=== PATIENT | female | born 1950 | race Caucasian/White ===

== ENCOUNTER 2020-10-12 09:07 | Emergency (ER) | payer OTHER ==
--- OUTSIDE RECORDS SUMMARY | 2020-10-12 09:10 | XMS REPORT | Continuity of Care Document ---
:1950 Author Organization [facility] t Address [address] [place] [address] Dr. Rodriguez [address] [place] [id number] Care Team Providers Name Role Phone Unavailable Unavailable Unavailable Problems This patient has no known problems. Allergies, Adverse Reactions, Alerts This patient has no known allergies or adverse reactions. Medications This patient has no known medications. Procedures This patient has no known procedures. Results This patient has no known results.
--- NOTE | 2020-10-12 09:53 | EDPHYS ---
Physician Documentation [facility] Name: Valeria Regan Age: 70 yrs Sex: Female : 1950 Arrival Date: 10/12/2020 Time: 09:10 Bed 5 Private MD: ED Physician Mauricio Carrizales HPI: 10/12 11:01 This 70 yrs old Female presents to ER via Ambulatory with complaints of Bee kb Sting, Hand Swelling. 11:01 The patient presents with itching, localized swelling, redness of skin. Onset: The kb symptoms/episode began/occurred yesterday. Associated signs and symptoms: Pertinent positives: swelling, Pertinent negatives: chest pain, nausea, rash, shortness of breath, Syncope vomiting. Possible causes: wasp. At home the patient or guardian has treated the symptoms with nothing. Severity of symptoms: At their worst the symptoms were moderate in the emergency department the symptoms are unchanged. The patient has not experienced similar symptoms in the past. The patient has not recently seen a physician. Pt reports swelling to left hand and forearm that started yesterday after being stung by a wasp.. Historical: - Allergies: 09:17 No Known Allergies; jd3 - PMHx: 09:17 Hypertension; jd3 09:18 tachycardia; jd3 - PSHx: 09:17 Hysterectomy; jd3 - Immunization history:: Adult Immunizations up to date, Client reports receiving the 2nd dose of the Covid vaccine. - Social history:: Smoking status: Patient denies any tobacco usage or history of. ROS: 10:56 Constitutional: Negative for fever, chills, and weight loss. kb 10:57 Skin: Positive for erythema, swelling, of the left hand and left forearm. kb 10:57 All other systems are negative. Exam: 10:59 Constitutional: This is a well developed, well nourished patient who is awake, alert, kb and in no acute distress. Head/Face: Normocephalic, atraumatic. ENT: Moist Mucous membranes Respiratory: Respirations even and unlabored. No increased work of breathing, no retractions or nasal flaring. MS/ Extremity: Pulses equal, no cyanosis. Neurovascular intact. Full, normal range of motion. Neuro: Awake and alert, GCS 15, oriented to person, place, time, and situation. Moves all extremities. Normal gait. Psych: Awake, alert, with orientation to person, place and time. Behavior, mood, and affect are within normal limits. 10:59 Skin: Appearance: normal except for affected area, Color: erythematous, mild erythema to palmar surface of left forearm, Temperature: warm, increased warmth noted to some areas of forearm, swelling, noted on the left forearm and left hand, that are moderate. Vital Signs: 09:18 BP 134 / 71; Pulse 72; Resp 17 S; Temp 97.0(TE); Pulse Ox 99% on R/A; Weight 67.59 kg jd3 (R); Height 5 ft. 4 in. (162.56 cm) (R); Pain 3/10; 09:18 Body Mass Index 25.58 (67.59 kg, 162.56 cm) jd3 MDM: 09:15 Patient medically screened. kb 10:55 Data reviewed: vital signs, nurses notes. Data interpreted: Pulse oximetry: on room air kb is 99 %. Interpretation: normal. Counseling: I had a detailed discussion with the patient and/or guardian regarding: the historical points, exam findings, and any diagnostic results supporting the discharge/admit diagnosis, the need for outpatient follow up, a family practitioner, to return to the emergency department if symptoms worsen or persist or if there are any questions or concerns that arise at home. 10:57 ED course: Full ROM, neurovascularly intact LUE. Pt educated on elevation of extremity kb to decrease swelling and use of medications. Pt educated to return for tingling, numbness, decreased sensation, coolness. Verbal understanding of all instructions received. . Administered Medications: 09:45 Drug: Pepcid (famotidine) 20 mg Route: PO; hb 09:46 Drug: KeFLEX (cephalexin) 500 mg Route: PO; hb 09:46 Drug: predniSONE 40 mg Route: PO; hb Disposition: 15:59 Co-signature as Attending Physician, Mauricio Carrizales MD. rn Disposition: 10/12/20 09:53 Discharged to Home. Impression: Bitten or stung by nonvenomous insect and other nonvenomous arthropods - wasp, Other insect allergy status. - Condition is Stable. - Discharge Instructions: Bee, Wasp, or Hornet Sting, Adult, Allergies, [id number]. - Prescriptions for Pepcid 20 mg Oral Tablet - take 1 tablet by ORAL route every 12 hours for 5 days; 10 tablet. Prednisone 20 mg Oral Tablet - take 1 tablet by ORAL route once daily for 5 days; 5 tablet. Keflex 500 mg Oral Capsule - take 1 capsule by ORAL route every 8 hours for 10 days; 30 capsule. - Medication Reconciliation Form, Thank You Letter, Antibiotic Education, Prescription Opioid Use form. - Follow up: Emergency Department; When: As needed; Reason: Worsening of condition. Follow up: Private Physician; When: 2 - 3 days; Reason: Recheck today's complaints, Continuance of care, Re-evaluation by your physician. Signatures: Chani Mendoza, MOLD YARN SUPERVISOR-C MOLD YARN SUPERVISOR-Ckb Mauricio Carrizales MD MD rn Sylvie Peña RN RN ss Danni Doyle RN RN Robin Schmitt RN RN jd3 Corrections: (The following items were deleted from the chart) 10:13 09:53 10/12/2020 09:53 Discharged to Home. Impression: Bitten or stung by nonvenomous ss insect and other nonvenomous arthropods - wasp; Other insect allergy status. Condition is Stable. Forms are Medication Reconciliation Form, Thank You Letter, Antibiotic Education, Prescription Opioid Use. Follow up: Emergency Department; When: As needed; Reason: Worsening of condition. Follow up: Private Physician; When: 2 - 3 days; Reason: Recheck today's complaints, Continuance of care, Re-evaluation by your physician. kb 10:57 10:56 Constitutional: Negative for fever, chills, and weight loss, kb kb
--- NOTE | 2020-10-12 09:53 | ER ---
Nurse's Notes [facility] Name: Valeria Regan Age: 70 yrs Sex: Female : 1950 Arrival Date: 10/12/2020 Time: 09:10 Bed 5 Private MD: Diagnosis: Bitten or stung by nonvenomous insect and other nonvenomous arthropods-wasp;Other insect allergy status Presentation: 10/12 09:16 Chief complaint: Patient states: "I got stung by a wasp yesterday and my left hand is jd3 swelling and now it is traveling up my arm". Coronavirus screen: At this time, the client does not indicate any symptoms associated with coronavirus-19. Ebola Screen: Patient negative for fever greater than or equal to 101.5 degrees Fahrenheit, and additional compatible Ebola Virus Disease symptoms. Onset: The symptoms/episode began/occurred gradually. Anaphylaxis evaluation, no signs or symptoms of anaphylaxis were noted. Initial Sepsis Screen: Does the patient meet any 2 criteria? No. Patient's initial sepsis screen is negative. Does the patient have a suspected source of infection? No. Patient's initial sepsis screen is negative. Risk Assessment: Do you want to hurt yourself or someone else? Patient reports no desire to harm self or others. Onset of symptoms was October 11, 2020. 09:16 Method Of Arrival: Ambulatory jd3 09:16 Acuity: DEYVI 3 jd3 Historical: - Allergies: 09:17 No Known Allergies; jd3 - PMHx: 09:17 Hypertension; jd3 09:18 tachycardia; jd3 - PSHx: 09:17 Hysterectomy; jd3 - Immunization history:: Adult Immunizations up to date, Client reports receiving the 2nd dose of the Covid vaccine. - Social history:: Smoking status: Patient denies any tobacco usage or history of. Assessment: 10:11 Reassessment: Patient appears in no apparent distress at this time. Patient and/or ss family updated on plan of care and expected duration. Pain level reassessed. Vital Signs: 09:18 BP 134 / 71; Pulse 72; Resp 17 S; Temp 97.0(TE); Pulse Ox 99% on R/A; Weight 67.59 kg jd3 (R); Height 5 ft. 4 in. (162.56 cm) (R); Pain 3/10; 09:18 Body Mass Index 25.58 (67.59 kg, 162.56 cm) jd3 ED Course: 09:10 Patient arrived in ED. mr 09:15 [facility]endo[facility]C [facility]. kb 09:15 Mauricio Carrizales MD is Attending Physician. kb 09:17 Triage completed. jd3 09:18 Arm band placed on. jd3 09:37 Danni Doyle, RN is Primary Nurse. hb 10:11 No provider procedures requiring assistance completed. Patient did not have IV access ss during this emergency room visit. Administered Medications: 09:45 Drug: Pepcid (famotidine) 20 mg Route: PO; hb 09:46 Drug: KeFLEX (cephalexin) 500 mg Route: PO; hb 09:46 Drug: predniSONE 40 mg Route: PO; hb Outcome: 09:53 Discharge ordered by MD. kb 10:11 Discharged to home ambulatory. ss 10:11 Condition: good 10:11 Discharge instructions given to patient, Instructed on discharge instructions, follow up and referral plans. medication usage, Demonstrated understanding of instructions, follow-up care, medications, Prescriptions given X 3. 10:13 Patient left the ED. ss Signatures: Chani Mendoza FNP-C FNP-Randy Geetha GuptaSylvie RN RN Danni Doyle, JUJU RN Robin Mccarty RN RN j
[2020-10-12] MEDS ORDERED: predniSONE 20 MG TAB ONE (10:04)
[2020-10-12] MEDS ORDERED: CEPHALEXIN 250 MG CAP ONE (10:04)
[2020-10-12] MEDS ORDERED: FAMOTIDINE 20 MG TAB ONE (10:04)
[2020-10-12 10:18] VITALS: BP 134/71; TEMP 97; O2SAT 99
== END 2020-10-12 10:13 | disposition home or self-care (01) ==
LOC: ER 09:07
DX: S50.862A Insect bite (nonvenomous) of left forearm, initial encounter (principal); Z91.038 Other insect allergy status; I10 Essential (primary) hypertension
CPT/HCPCS: 99283; J7512

== ENCOUNTER 2020-10-15 12:36 | Emergency (ER) | payer OTHER ==
--- OUTSIDE RECORDS SUMMARY | 2020-10-15 12:42 | XMS REPORT | Continuity of Care Document ---
:1950 Author Organization [facility] t Address [address] [place] [address] Dr. Rodriguez [address] [place] [id number] Care Team Providers Name Role Phone Unavailable Unavailable Unavailable Problems This patient has no known problems. Allergies, Adverse Reactions, Alerts This patient has no known allergies or adverse reactions. Medications This patient has no known medications. Procedures This patient has no known procedures. Results This patient has no known results.
--- NOTE | 2020-10-15 14:29 | EDPHYS ---
Physician Documentation [facility] Name: Valeria Regan Age: 70 yrs Sex: Female : 1950 Arrival Date: 10/15/2020 Time: 12:37 Bed 4 Private MD: ED Physician Michael Qiu HPI: 10/15 14:20 This 70 yrs old Female presents to ER via Ambulatory with complaints of vivian Allergic Reaction. Historical: - Allergies: 13:05 No Known Allergies; ph - PMHx: 13:05 Hypertension; Tachycardia; ph - Immunization history:: Client reports receiving the 2nd dose of the Covid vaccine. - Social history:: Smoking status: Patient denies any tobacco usage or history of. - Family history:: not pertinent. ROS: 14:20 Constitutional: Negative for fever, chills, and weight loss, Eyes: Negative for injury, vivian pain, redness, and discharge, ENT: Negative for injury, pain, and discharge, Neck: Negative for injury, pain, and swelling, Cardiovascular: Negative for chest pain, palpitations, and edema, Respiratory: Negative for shortness of breath, cough, wheezing, and pleuritic chest pain, Abdomen/GI: Negative for abdominal pain, nausea, vomiting, diarrhea, and constipation, Back: Negative for injury and pain, : Negative for injury, bleeding, discharge, and swelling, MS/Extremity: Negative for injury and deformity, Skin: Negative for injury, rash, and discoloration, Neuro: Negative for headache, weakness, numbness, tingling, and seizure, Psych: Negative for depression, anxiety, suicide ideation, homicidal ideation, and hallucinations, Endocrine: Negative for neck swelling, polydipsia, polyuria, polyphagia, and marked weight changes, Hematologic/Lymphatic: Negative for swollen nodes, abnormal bleeding, and unusual bruising. 14:20 Allergy/Immunology: Positive for rash to left arm, resolved now, from Keflex. Exam: 14:20 Constitutional: This is a well developed, well nourished patient who is awake, alert, vivian and in no acute distress. Head/Face: Normocephalic, atraumatic. Eyes: Pupils equal round and reactive to light, extra-ocular motions intact. Lids and lashes normal. Conjunctiva and sclera are non-icteric and not injected. Cornea within normal limits. Periorbital areas with no swelling, redness, or edema. ENT: Nares patent. No nasal discharge, no septal abnormalities noted. Tympanic membranes are normal and external auditory canals are clear. Oropharynx with no redness, swelling, or masses, exudates, or evidence of obstruction, uvula midline. Mucous membranes moist. Neck: Trachea midline, no thyromegaly or masses palpated, and no cervical lymphadenopathy. Supple, full range of motion without nuchal rigidity, or vertebral point tenderness. No Meningismus. Chest/axilla: Normal chest wall appearance and motion. Nontender with no deformity. No lesions are appreciated. Cardiovascular: Regular rate and rhythm with a normal S1 and S2. No gallops, murmurs, or rubs. Normal PMI, no JVD. No pulse deficits. Respiratory: Lungs have equal breath sounds bilaterally, clear to auscultation and percussion. No rales, rhonchi or wheezes noted. No increased work of breathing, no retractions or nasal flaring. Abdomen/GI: Soft, non-tender, with normal bowel sounds. No distension or tympany. No guarding or rebound. No evidence of tenderness throughout. Back: No spinal tenderness. No costovertebral tenderness. Full range of motion. Skin: Warm, dry with normal turgor. Normal color with no rashes, no lesions, and no evidence of cellulitis. MS/ Extremity: Pulses equal, no cyanosis. Neurovascular intact. Full, normal range of motion. Neuro: Awake and alert, GCS 15, oriented to person, place, time, and situation. Cranial nerves II-XII grossly intact. Motor strength 5/5 in all extremities. Sensory grossly intact. Cerebellar exam normal. Normal gait. Psych: Awake, alert, with orientation to person, place and time. Behavior, mood, and affect are within normal limits. Vital Signs: 12:59 Pulse 59; Resp 18; Temp 97; ph 12:59 BP 154 / 85; Temp 97.1; Pulse Ox 98% ; Weight 67.59 kg; Height 5 ft. 4 in. (162.56 cm); ph 12:59 Body Mass Index 25.58 (67.59 kg, 162.56 cm) ph MDM: 13:10 Patient medically screened. [facility] 14:23 Differential diagnosis: anaphylaxis, angioedema, urticaria. Data reviewed: vital signs, [facility] nurses notes. Data interpreted: quality assurance monitor: rate is 59 beats/min, rhythm is regular, Pulse oximetry: on room air is 59 %. Counseling: I had a detailed discussion with the patient and/or guardian regarding: the historical points, exam findings, and any diagnostic results supporting the discharge/admit diagnosis, the need for outpatient follow up, for definitive care, Administered Medications: 14:20 Not Given (Duplicate Order): NS 0.9% 1000 ml IV at 1 bolus Per protocol; 1000 mL bolus vivian 14:20 Not Given (Duplicate Order): Benadryl (diphenhydrAMINE) 25 mg IVP once vivian 14:20 Not Given (Duplicate Order): Pepcid (famotidine) 20 mg IVP once; dilute with 10 mL 0.9% vivian NaCl; give over 2 minutes 14:20 Not Given (Duplicate Order): SOLU-Medrol (methylPrednisoLONE) 125 mg IVP once vivian Disposition Summary: 10/15/20 14:28 Discharge Ordered Location: Home [facility] Problem: new vivian Symptoms: have improved vivian Condition: Stable vivian Diagnosis - Toxic effect of venom of wasps vivian - Allergy status to unspecified drugs, medicaments and biological substances status - vivian KEFLEX Followup: vivian - With: Private Physician - When: 2 - 3 days - Reason: Recheck today's complaints, Continuance of care, Re-evaluation by your physician Discharge Instructions: - Discharge Summary Sheet vivian - Allergies, Adult vivian - Drug Allergy, [id number] vivian - Drug Allergy vivian - Angioedema vviian - Angioedema, [id number] [facility] Forms: - Medication Reconciliation Form [facility] - Thank You Letter [facility] - Antibiotic Education vivian - Prescription Opioid Use [facility] Prescriptions: - EpiPen 2-Steven - inject 1 application by INTRAMUSCULAR route as directed; 2 applicatorful; [facility] Refills: 0, Product Selection Permitted Signatures: Dispatcher [employer] Michael Richardson MD MD cha Hall, Patricia RN RN Sushma Headley RN RN tw2 Corrections: (The following items were deleted from the chart) 14:20 13:16 IV Saline Lock ordered. tw2 vivian
--- NOTE | 2020-10-15 14:29 | ER ---
Nurse's Notes [facility] Name: Valeria Regan Age: 70 yrs Sex: Female : 1950 Arrival Date: 10/15/2020 Time: 12:37 Bed 4 Private MD: Diagnosis: Toxic effect of venom of wasps;Allergy status to unspecified drugs, medicaments and biological substances status-KEFLEX Presentation: 10/15 12:59 Chief complaint: Patient states: Treated in ED on Monday for wasp sting, sent home w/ ph Pepcid, prednisone, and Keflex, yesterday morning woke up and lower lip was swollen, has not taken any of the meds since, called PCP and was told to come to ED for evaluation for possible allergic reaction to medication, lower lip does not appear swollen during triage, denies SOB. Coronavirus screen: Client denies travel out of the [place] in the last 14 days. At this time, the client does not indicate any symptoms associated with coronavirus-19. Ebola Screen: No symptoms or risks identified at this time. Onset: The symptoms/episode began/occurred gradually. Anaphylaxis evaluation, no signs or symptoms of anaphylaxis were noted. Initial Sepsis Screen: Does the patient meet any 2 criteria? No. Patient's initial sepsis screen is negative. Does the patient have a suspected source of infection? No. Patient's initial sepsis screen is negative. Risk Assessment: Do you want to hurt yourself or someone else? Patient reports no desire to harm self or others. 12:59 Method Of Arrival: Ambulatory ph 12:59 Acuity: DEYVI 4 ph Historical: - Allergies: 13:05 No Known Allergies; ph - PMHx: 13:05 Hypertension; Tachycardia; ph - Immunization history:: Client reports receiving the 2nd dose of the Covid vaccine. - Social history:: Smoking status: Patient denies any tobacco usage or history of. - Family history:: not pertinent. Screenin:06 Abuse screen: Denies threats or abuse. Nutritional screening: No deficits noted. tw2 Tuberculosis screening: No symptoms or risk factors identified. Fall Risk Secondary diagnosis (15 points) impaired mobility. Assessment: 13:17 General: Appears in no apparent distress. comfortable, Behavior is calm, cooperative, kg appropriate for age, quiet. Pain: Complains of pain in lower lip and lower [place] Pain currently is 1 out of 10 on a pain scale. at worst was 1 out of 10 on a pain scale. level that patient reports is acceptable is 1 out of 10 on a pain scale. Quality of pain is described as tingling. Neuro: No deficits noted. Cardiovascular: No deficits noted. Respiratory: No deficits noted. Airway is patent Respiratory effort is even, unlabored, relaxed, Breath sounds are clear bilaterally. GI: No deficits noted. : No deficits noted. EENT: No deficits noted. Derm: No deficits noted. Musculoskeletal: No deficits noted. Vital Signs: 12:59 Pulse 59; Resp 18; Temp 97; ph 12:59 BP 154 / 85; Temp 97.1; Pulse Ox 98% ; Weight 67.59 kg; Height 5 ft. 4 in. (162.56 cm); ph 12:59 Body Mass Index 25.58 (67.59 kg, 162.56 cm) ph ED Course: 12:37 Patient arrived in ED. as 13:04 Triage completed. ph 13:05 Arm band placed on Patient placed in an exam room. ph 13:05 Bed in low position. Call light in reach. Pulse ox on. NIBP on. Warm blanket given. tw2 13:10 Michael Qiu MD is Attending Physician. vivian 13:16 Sushma Alcala, RN is Primary Nurse. tw2 13:17 Primary Nurse role handed off by Sushma Alcala, JUJU kg 13:17 Suze Dalton, JUJU is Primary Nurse. kg 14:39 No provider procedures requiring assistance completed. Patient did not have IV access iw during this emergency room visit. Administered Medications: 14:20 Not Given (Duplicate Order): NS 0.9% 1000 ml IV at 1 bolus Per protocol; 1000 mL bolus vivian 14:20 Not Given (Duplicate Order): Benadryl (diphenhydrAMINE) 25 mg IVP once vivian 14:20 Not Given (Duplicate Order): Pepcid (famotidine) 20 mg IVP once; dilute with 10 mL 0.9% vivian NaCl; give over 2 minutes 14:20 Not Given (Duplicate Order): SOLU-Medrol (methylPrednisoLONE) 125 mg IVP once vivian Outcome: 14:28 Discharge ordered by . vivian 14:39 Discharged to home ambulatory. iw 14:39 Condition: good 14:39 Discharge instructions given to patient, Instructed on discharge instructions, follow up and referral plans. medication usage, Demonstrated understanding of instructions, follow-up care, medications, Prescriptions given X 1. 14:39 Patient left the ED. iw Signatures: Michael Qiu MD MD cha Martinez, Amelia as Williams, Irene, RN RN iw Josefa Hoyos RN RN Fredrick, Sushma RN RN tw2 Suze Dalton RN RN kg
[2020-10-15 14:58] VITALS: BP 154/85; TEMP 97.1; O2SAT 98
== END 2020-10-15 14:39 | disposition home or self-care (01) ==
LOC: ER 12:36
DX: T63.461A Toxic effect of venom of wasps, accidental (unintentional), initial encounter (principal); Z88.1 Allergy status to other antibiotic agents; I10 Essential (primary) hypertension
CPT/HCPCS: 99283

== ENCOUNTER 2023-02-11 22:34 | Emergency (ER) | payer OTHER ==
--- OUTSIDE RECORDS SUMMARY | 2023-02-11 22:37 | XMS REPORT | Continuity of Care Document ---
:1950 Author Organization [facility] t Address [address] [place] [address]. [address] [place] [address] Care Team Providers Name Role Phone Clyde Heath Primary Care Physician [email or web address] Attending Clinician Unavailable Harish Arredondo MD Attending Clinician Doctor Unassigned, [place] Attending Clinician Unavailable HARISH ARREDONDO Attending Clinician Unavailable Nick Restrepo Attending Clinician SHANTI ZARATE Attending Clinician Unavailable [email or web address] Admitting Clinician Unavailable Payers Payer Name Policy Type Policy Number Effective Date Expiration Date Racheal zepeda MEDICARE PART A [id number] 2013 \T\ B 00:00:[address] [facility] [id number] 2017 00:00:00 Problems Condition Condition Condition Status Onset Resolution Last Treating Co mments Source Name Details Category Date Date Treatment Clinician Date No known No known Disease Unive rs active active ity of problems problems [facility] Allergies, Adverse Reactions, Alerts Allergy Allergy Status Severity Reaction(s) Onset Inactive Treating Comm ents Source Name Type Date Date Clinician PENICILL DRUG Active Swelling Univer s IN INGREDI 11-12 ity of 00:00: [place] 00 Medical Branch Penicill Propensi Active Swelling Univ ers in ty to 11-12 ity of adverse 00:00: [place] reaction 00 Medical s Branch NO KNOWN Drug Active Univers ALLERGIE Class ity of S [facility] Social History Social Habit Start Date Stop Date Quantity Comments Source Exposure to Not sure [facility] SARS-CoV-2 (event) Medica l Branch Sex Ass[birth year] At [birth year] [facility] 00:00:00 00:00:00 Medical [place] Smoking Status Start Date Stop Date Source Unknown if ever smoked [facility] Medications Ordered Filled Start Stop Current Ordering Indication Dosage Frequency Signature Comments Components Source Medication Medication Date Date Medication? Clinician (SIG) Name Name BABY Yes Take by Univers ASPIRIN 8-13 mouth. ity of ORAL 15:12: [address] BABY Yes Take by [facility] ASPIRIN 8-13 mouth. ity of ORAL 15:12: [address] BABY Yes Take by [facility] ASPIRIN 8-13 mouth. ity of ORAL 15:12: [address] BABY Yes Take by [facility] ASPIRIN 8-13 mouth. ity of ORAL 15:12: [address] BABY Yes Take by [facility] ASPIRIN 8-13 mouth. ity of ORAL 15:12: [address] BABY Yes Take by [facility] ASPIRIN 8-13 mouth. ity of ORAL 15:12: [address] BABY Yes Take by [facility] ASPIRIN 8-13 mouth. ity of ORAL 15:12: [address] meloxicam Yes [id number] 7.5mg Take 1 U nivers 7.5 mg 8-13 tablet by ity of tablet 00:00: mouth [place] [address] [facility] meloxicam Yes [id number] 7.5mg Take 1 U nivers 7.5 mg 8-13 tablet by ity of tablet 00:00: mouth [place] [address] [facility] meloxicam Yes [id number] 7.5mg Take 1 U nivers 7.5 mg 8-13 tablet by ity of tablet 00:00: mouth [place] [address] [facility] meloxicam Yes [id number] 7.5mg Take 1 U nivers 7.5 mg 8-13 tablet by ity of tablet 00:00: mouth [place] [address] [facility] meloxicam Yes [id number] 7.5mg Take 1 U nivers 7.5 mg 8-13 tablet by ity of tablet 00:00: mouth [place] 00 daily. Medical Branch montelukast 2021-0 Yes 10mg Take 10 mg Univers 10 mg 6-22 by mouth ity of tablet 00:00: every [place] 00 morning. Medical Branch montelukast 2021-0 Yes 10mg Take 10 mg Univers 10 mg 6-22 by mouth ity of tablet 00:00: every [place] 00 morning. Medical Branch montelukast 2021-0 Yes 10mg Take 10 mg Univers 10 mg 6-22 by mouth ity of tablet 00:00: every [place] 00 morning. Medical Branch montelukast 2021-0 Yes 10mg Take 10 mg Univers 10 mg 6-22 by mouth ity of tablet 00:00: every [place] morning. Medical Branch montelukast 1-0 Yes 10mg Take 10 mg Univers 10 mg 6-22 by mouth ity of tablet 00:00: every [place] morning. Medical Branch montelukast 1-0 Yes 10mg Take 10 mg Univers 10 mg 6-22 by mouth ity of tablet 00:00: every [place] morning. Medical Branch montelukast 1-0 Yes 10mg Take 10 mg Univers 10 mg 6-22 by mouth ity of tablet 00:00: every [place] [address] morning. Medical Branch alendronate 1-0 Yes 70mg Take 70 mg Univers 70 mg 6-16 by mouth ity of tablet 00:00: weekly. [place] [facility] alendronate 2021-0 Yes 70mg Take 70 mg Univers 70 mg 6-16 by mouth ity of tablet 00:00: weekly. [place] [address] Medical Branch alendronate 2021-0 Yes 70mg Take 70 mg Univers 70 mg 6-16 by mouth ity of tablet 00:00: weekly. [place] [facility] alendronate 2021-0 Yes 70mg Take 70 mg Univers 70 mg 6-16 by mouth ity of tablet 00:00: weekly. [place] [facility] alendronate 1-0 Yes 70mg Take 70 mg Univers 70 mg 6-16 by mouth ity of tablet 00:00: weekly. [place] [facility] alendronate 2021-0 Yes 70mg Take 70 mg Univers 70 mg 6-16 by mouth ity of tablet 00:00: weekly. [place] [address] Medical Branch alendronate 2021-0 Yes 70mg Take 70 mg Univers 70 mg 6-16 by mouth ity of tablet 00:00: weekly. Medical Branch DILT-XR 120 2020-0 Yes 120mg Take 120 U nivers mg 24 hr 5-29 mg by ity of capsule 00:00: mouth 00 daily. Medical Branch DILT-XR 120 2020-0 Yes 120mg Take 120 U nivers mg 24 hr 5-29 mg by ity of capsule 00:00: mouth 00 daily. Medical Branch DILT-XR 120 2020-0 Yes 120mg Take 120 U nivers mg 24 hr 5-29 mg by ity of capsule 00:00: mouth 00 daily. Medical Branch DILT-XR 120 2020-0 Yes 120mg Take 120 U nivers mg 24 hr 5-29 mg by ity of capsule 00:00: mouth 00 daily. Medical Branch DILT-XR 120 2020-0 Yes 120mg Take 120 U nivers mg 24 hr 5-29 mg by ity of capsule 00:00: mouth 00 daily. Medical Branch DILT-XR 120 2020-0 Yes 120mg Take 120 U nivers mg 24 hr 5-29 mg by ity of capsule 00:00: mouth daily. Medical Branch DILT-XR 120 2020-0 Yes 120mg Take 120 U nivers mg 24 hr 5-29 mg by ity of capsule 00:00: mouth 00 daily. Medical Branch losartan 50 2020-0 Yes 50mg Take 50 mg Univers mg tablet 5-18 by mouth ity of 00:00: daily. Medical Branch losartan 50 2020-0 Yes 50mg Take 50 mg Univers mg tablet 5-18 by mouth ity of 00:00: daily. Medical Branch losartan 50 2020-0 Yes 50mg Take 50 mg Univers mg tablet 5-18 by mouth ity of 00:00: daily. Medical Branch losartan 50 2020-0 Yes 50mg Take 50 mg Univers mg tablet 5-18 by mouth ity of 00:00: daily. Medical Branch losartan 50 2020-0 Yes 50mg Take 50 mg Univers mg tablet 5-18 by mouth ity of 00:00: daily. Medical Branch losartan 50 2020-0 Yes 50mg Take 50 mg Univers mg tablet 5-18 by mouth ity of 00:00: daily. Medical Branch losartan 50 2020-0 Yes 50mg Take 50 mg Univers mg tablet 5-18 by mouth ity of 00:00: daily. [place] [address] [facility] No known No Univers medications ity of [facility] No known No Univers medications ity of [facility] No known No Univers medications ity of [facility] No known No Univers medications ity of [facility] No known No Univers medications ity of [facility] No known No Univers medications ity of [facility] Vital Signs Vital Name Observation Time Observation Value Comments Source Systolic blood 2020-11-27 15:14:00 144 mm[Hg] Univer sity of pressure [facility] Diastolic blood 2020-11-27 15:14:00 79 mm[Hg] Unive rsity of [facility] Heart rate 2020-11-27 15:06:00 61 /min Universi ty of [facility] Respiratory rate 2020-11-27 15:06:00 18 /min Univ ersity of [facility] Body height 2020-11-27 15:06:00 162.6 cm Universi ty of [facility] Body weight 2020-11-27 15:06:00 64.864 kg Universi ty of [place] [facility] BMI 2020-11-27 15:06:00 24.55 kg/m2 Universi ty of [facility] Systolic blood 2020-11-12 14:46:00 136 mm[Hg] Univer sity of [facility] Diastolic blood 2020-11-12 14:46:00 81 mm[Hg] Unive rsity of [facility] Respiratory rate 2020-11-12 14:46:00 18 /min Univ ersity of [facility] Body height 2020-11-12 14:46:00 162.6 cm Universi ty of [place] [facility] Body weight 2020-11-12 14:46:00 64.864 kg Universi ty of [place] [facility] BMI 2020-11-12 14:46:00 24.55 kg/m2 Universi ty of [facility] Branch Procedures Procedure Date / Time Performed Performing Clinician [facility] Branch e DAY SURGERY - ADC 2020-12-01 05:01:00 Doctor Unassigned, No Univ ersity of [place] Name Medical Branch REFERRAL- 2020-11-19 05:01:00 Doctor Unassigned, No Univer sity of [place] REQUEST/RESPONSE Name Medical Branch MR KNEE RIGHT WO 2020-11-18 13:44:28 Harish Arredondo [facility] Encounters Start End Encounter Admission Attending Care Care Encounter Source Date/Time Date/Time Type Type Clinicians Facility Department ID 2023-02-10 2023-02-10 Outpatient [id number] PRIV PRIV [id number] [facility] 00:00:00 00:00:00 diyala_S [id number] Medic al 2020-12-11 2020-12-11 Outpatient R [facility] [id number] Univers 10:15:00 10:15:00 ity of [facility] 2020-12-03 2020-12-03 Telephone Maria Elena [facility] [id number] Univers 00:00:00 00:00:00 Harish Rushing [id number] it y of Surgical [id number] Jagdeep as Specialti [id number] Me dical es [address] [facility] 2020-12-02 2020-12-02 Telephone Maria Elena CTRUTHY [id number] Univers 00:00:00 00:00:00 Harish Contreras [id number] i [id number] Profess[place] [phone] Wy dical nal [address] [facility] 2020-12-01 2020-12-01 Orders Doctor MACARIO [id number] Univers 00:00:00 00:00:00 Only Unassigned, KURT [id number] ity of [place] [facility] 4.2.7.2.686 Jagdeep as [id number] [address] 2020-11-27 2020-11-27 [facility] [id number] Univers 10:05:23 14:01:43 Visit Harish Rushing [id number] it y of Surgical [id number] Jagdeep as Specialti [id number] Me dical es [address] [facility] 2020-11-27 2020-11-27 Outpatient R MARIA ELENA [facility] [id number] Univers 10:15:00 10:15:00 HARISH cortez [facility] 2020-11-27 2020-11-27 Telephone [facility] [id number] Univers 00:00:00 00:00:00 [facility] [id number] it y of Surgical [id number] Jagdeep as Specialti [phone] Wy dical es [address] [facility] 2020-11-19 2020-11-19 Orders Doctor MACARIO [id number] Univers 00:00:00 00:00:00 Only Unassigned, KURT [id number] ity of [place] [facility] [id number] [facility] [address] [place] 2020-11-18 2020-11-18 [facility] [id number] Univers 07:44:53 23:59:00 Encounter Harish Contreras [id number] ity of [place] [id number] [place] [facility] [id number] [facility] [address] [place] 2020-11-18 2020-11-18 Outpatient R [facility] [id number] Univers 00:00:00 00:00:00 HARISH cortez [facility] 2020-11-17 2020-11-17 Telephone [facility] [id number] Univers 00:00:00 00:00:00 Harish [facility] [id number] it y of Surgical [id number] Jagdeep as Specialti [phone] Wy dical es [address] [facility] 2020-11-12 2020-11-12 [facility] [id number] Univers 09:48:53 23:59:00 Encounter Harish [facility] [id number] ity of Surgical [id number] Jagdeep as Specialti [id number] Wy dical es [address] [facility] 2020-11-12 2020-11-12 Office [facility] [id number] Univers 09:41:42 10:26:40 Visit Harish Dias [facility] [id number] it y of Surgical [id number] Jagdeep as Specialti [id number] Wy dical es 198 Branch [place] 2020-11-12 2020-11-12 [facility] [id number] Univers 09:45:00 09:45:00 HARISH cortez [facility] 2020-06-29 2020-06-29 [facility] [id number] Univers 08:40:00 08:40:00 SHANTI mely [facility] 2020-06-08 2020-06-08 [facility] [id number] [facility] 08:40:00 14:54:29 [facility] [place] [facility] Results Test Description Test Time Test Comments Results Result Sour e Comments MR KNEE RIGHT WO 2020-11-0 Complex medial Uni versity of CONTRAST 4 meniscus tear with [facility] 16:16:16 questionable free Branch edge tearing of thelateral meniscus body. 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 No MCL, LCL complex are cruciate ligament derangement. Preliminary Report Dictated by Resident: Doyle Chavira I, Adam Martell MD., have reviewed this study and agree with the abovereport.EXAM: MRI RIGHT KNEE WITHOUT CONTRAST HISTORY: Knee pain, chronic, negative xray (Age >= 5y) COMPARISON: Right knee x-ray 11/12/2020 TECHNIQUE AND FINDINGS: 1.5T multiplanar multiweighted MR imaging of the right knee was performedwithout contrast. BONE AND JOINT: The patellar alignment is anatomic. Grade 1/2 chondrosis of the lateralpatellar facet and medial tibiofemoral compartment. The remaining chondralsurfaces are intact. No abnormal bone marrow signal identified.Tricompart mental osteophytosis. Trace joint effusion is present. MENISCI: An inferiorly surfacing horizontal and vertical oblique tear of theposterior horn medial meniscus with extension into the body. An additionalradial free edge component is seen at the posterior horn. There aremeniscal fragments displaced centrally adjacent to the posterior horn rootinsertion. Slight blunting of the free edge of the body of the lateral meniscus ispresent on the coronal acquisitions only. LIGAMENTS AND TENDONS: The patellofemoral retinacula, extensor mechanism, cruciate ligaments,medial collateral ligament and lateral collateral ligamentous complex areintact. Mild thickening and increased signal of the popliteus tendon near thefemoral insertion. SOFT TISSUES: No muscle atrophy is demonstrated. No solid soft tissue masses are present.Trace fluid is seen within the popliteus bursa. [facility], Radiant Results Inft User - 11/18/2020 11:17 AM CDT EXAM: MRI RIGHT KNEE WITHOUT CONTRASTHISTORY: Knee pain, chronic, negative xray (Age >= 5y) COMPARISON: Right knee x-ray 11/12/2020TECHNIQUE AND FINDINGS:1.5T multiplanar multiweighted MR imaging of the right knee was performedwithout contrast.BONE AND JOINT:The patellar alignment is anatomic. Grade 1/2 chondrosis of the lateralpatellar facet and medial tibiofemoral compartment. The remaining chondralsurfaces are intact. No abnormal bone marrow signal identified.Tricompart mental osteophytosis. Trace joint effusion is present. MENISCI:An inferiorly surfacing horizontal and vertical oblique tear of theposterior horn medial meniscus with extension into the body. An additionalradial free edge component is seen at the posterior horn. There aremeniscal fragments displaced centrally adjacent to the posterior horn rootinsertion.Slight blunting of the free edge of the body of the lateral meniscus ispresent on the coronal acquisitions only.LIGAMENTS AND TENDONS:The patellofemoral retinacula, extensor mechanism, cruciate ligaments,medial collateral ligament and lateral collateral ligamentous complex areintact. Mild thickening and increased signal of the popliteus tendon near thefemoral insertion.SOFT TISSUES:No muscle atrophy is demonstrated. 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
[2023-02-11] MEDS ORDERED: TETRACAINE HCL 0.5% 4ML OPTH ONE (23:13)
[2023-02-11] MEDS ORDERED: FLUORESCEIN SODIUM 1 MG/WRAP ONE (23:13)
--- NOTE | 2023-02-11 23:20 | EDPHYS ---
Physician Documentation [facility] Name: Valeria Regan Age: 72 yrs Sex: Female : 1950 Arrival Date: 02/11/2023 Time: 22:34 Bed 13 Private MD: ED Physician Skyler Valiente HPI: 02/12 02:17 This 72 yrs old Female presents to ER via Ambulatory with complaints of Eye Pain. rt 02:17 Patient presents to the ED with a foreign body sensation to the right eye. Patient rt states earlier today, she was outside, she felt a speck of something hit her in the eye. A friend try to remove it. She states she still feels like she has something in her eye that has been tearing. Denies other acute complaints at this time, symptoms are mild in severity, no other aggravating elevating factors.. Historical: - Allergies: 02/11 22:54 PENICILLINS; iw - PMHx: 22:54 Hypertension; Tachycardia; iw - PSHx: 22:54 hysterectomy; iw - Immunization history:: Adult Immunizations Client reports receiving the 2nd dose of the Covid vaccine. - Social history:: Smoking status: Patient denies any tobacco usage or history of. - Family history:: not pertinent. ROS: 02/12 02:17 Constitutional: Negative for fever, chills, and weight loss, Cardiovascular: Negative rt for chest pain, palpitations, and edema, Respiratory: Negative for shortness of breath, cough, wheezing, and pleuritic chest pain, Abdomen/GI: Negative for abdominal pain, nausea, vomiting, diarrhea, and constipation, Skin: Negative for injury, rash, and discoloration, Neuro: Negative for headache, weakness, numbness, tingling, and seizure, Psych: Negative for depression, anxiety, suicide ideation, homicidal ideation, and hallucinations, Eyes: Positive for foreign body sensation, pain, Exam: 02:17 Constitutional: This is a well developed, well nourished patient who is awake, alert, rt and in no acute distress. Head/Face: Normocephalic, atraumatic. Chest/axilla: Normal chest wall appearance and motion. Nontender with no deformity. No lesions are appreciated. Cardiovascular: Regular rate and rhythm with a normal S1 and S2. No gallops, murmurs, or rubs. Normal PMI, no JVD. No pulse deficits. Respiratory: Lungs have equal breath sounds bilaterally, clear to auscultation and percussion. No rales, rhonchi or wheezes noted. No increased work of breathing, no retractions or nasal flaring. Abdomen/GI: Soft, non-tender, with normal bowel sounds. No distension or tympany. No guarding or rebound. No evidence of tenderness throughout. Skin: Warm, dry with normal turgor. Normal color with no rashes, no lesions, and no evidence of cellulitis. MS/ Extremity: Pulses equal, no cyanosis. Neurovascular intact. Full, normal range of motion. Neuro: Awake and alert, GCS 15, oriented to person, place, time, and situation. Cranial nerves II-XII grossly intact. Motor strength 5/5 in all extremities. Sensory grossly intact. Cerebellar exam normal. Normal gait. Psych: Awake, alert, with orientation to person, place and time. Behavior, mood, and affect are within normal limits. 02:17 Eyes: Extraocular muscles are intact, conjunctival injection noted to the right eye. Eyelids everted, no foreign bodies identified. Fluorescein stain shows a small area of focal uptake at about 9:00, Spencer sign negative.. Vital Signs: 02/11 22:53 BP 172 / 77; Pulse 60; Resp 16; Temp 97.4; Pulse Ox 100% on R/A; Weight 62.6 kg; Height iw 5 ft. 4 in. ; Pain 7/10; 23:27 BP 139 / 63; Pulse 65; Resp 17 S; Pulse Ox 100% on R/A; ha1 22:53 Body Mass Index 23.69 (62.60 kg, 162.56 cm) iw 22:53 Pain Scale: Adult iw Visual Acuity: 23:30 Left Eye Normal, Brisk, Pin Point; Right Eye Normal, Brisk, Pin Point; Both Eyes Visual ha1 acuity 20/20; With Lenses; MDM: 23:00 Patient medically screened. rt 02/12 02:17 Differential diagnosis: Corneal ulcer, corneal abrasion, foreign body, open globe. Data rt reviewed: vital signs, nurses notes. Test considered but Not performed: CT: Physical exam findings and mechanism of injury not consistent with an open globe, CT scan not indicated. Counseling: I had a detailed discussion with the patient and/or guardian regarding the historical points, exam findings, and any diagnostic results supporting the discharge/admit diagnosis, the need for outpatient follow up. Response to treatment: the patient's symptoms have markedly improved after treatment. Administered Medications: No medications were administered Disposition Summary: 02/11/23 23:20 Discharge Ordered Notes: Location: Home rt Problem: new rt Symptoms: have improved rt Condition: Stable rt Diagnosis - Injury of conjunctiva and corneal abrasion without foreign body, right eye rt Followup: rt - With: Private Physician - When: 5 - 6 days - Reason: Discharge Instructions: - Discharge Summary Sheet rt - Corneal Abrasion rt Forms: - Medication Reconciliation Form rt - Thank You Letter rt - Antibiotic Education rt - Prescription Opioid Use rt - Patient Portal Instructions rt - Leadership Thank You Letter rt Signatures: Cee Patricia RN RN Skyler Ferguson MD MD rt Corrections: (The following items were deleted from the chart) 02/11 22:55 22:54 Allergies: No Known Allergies; antoinette
--- NOTE | 2023-02-11 23:20 | ER ---
Nurse's Notes [facility] Name: Valeria Regan Age: 72 yrs Sex: Female : 1950 Arrival Date: 02/11/2023 Time: 22:34 Bed 13 Private MD: Diagnosis: Injury of conjunctiva and corneal abrasion without foreign body, right eye Presentation: 02/11 22:53 Chief complaint: Patient states: was outside earlier this evening, something flew in my iw eye, now it's draining and feels like there is something stuck in there. Coronavirus screen: At this time, the client does not indicate any symptoms associated with coronavirus-19. Ebola Screen: Patient negative for fever greater than or equal to 101.5 degrees Fahrenheit, and additional compatible Ebola Virus Disease symptoms Patient denies exposure to infectious person. Patient denies travel to an Ebola-affected area in the 21 days before illness onset. No symptoms or risks identified at this time. The patient denies any loss of vision. Initial Sepsis Screen: Does the patient meet any 2 criteria? No. Patient's initial sepsis screen is negative. Does the patient have a suspected source of infection? No. Patient's initial sepsis screen is negative. Risk Assessment: Do you want to hurt yourself or someone else? Patient reports no desire to harm self or others. Onset of symptoms was February 11, 2023. 22:53 Method Of Arrival: Ambulatory iw 22:53 Acuity: DEYVI 4 iw Historical: - Allergies: 22:54 PENICILLINS; iw - PMHx: 22:54 Hypertension; Tachycardia; iw - PSHx: 22:54 hysterectomy; iw - Immunization history:: Adult Immunizations Client reports receiving the 2nd dose of the Covid vaccine. - Social history:: Smoking status: Patient denies any tobacco usage or history of. - Family history:: not pertinent. Screenin:28 [facility] ED Fall Risk Assessment (Adult) History of falling in the last 3 months, ha1 including since admission No falls in past 3 months (0 pts) Confusion or Disorientation No (0 pts) Intoxicated or Sedated No (0 pts) Impaired Gait No (0 pts) Mobility Assist Device Used No (0 pt) Altered Elimination No (0 pt) Score/Fall Risk Level 0 - 2 = Low Risk Oriented to surroundings, Maintained a safe environment, Educated pt \T\ family on fall prevention, incl call for assistance when getting out of bed, Hourly rounding (assess needs \T\ fall precautionary measures) done. Abuse screen: Denies threats or abuse. Denies injuries from another. Nutritional screening: No deficits noted. Tuberculosis screening: No symptoms or risk factors identified. Assessment: 23:00 General: Appears comfortable, Behavior is cooperative. Pain: Complains of pain in right ha1 eye Pain does not radiate. Pain currently is 6 out of 10 on a pain scale. Quality of pain is described as burning. Neuro: Level of Consciousness is awake, alert, obeys commands, Oriented to person, place, time, situation. Cardiovascular: Patient's skin is warm and dry. Respiratory: Airway is patent Respiratory effort is even, unlabored, Respiratory pattern is regular, symmetrical. GI: Abdomen is flat, non-distended. EENT: Eyes redness . Sclera/Cornea are reddened in outer aspect of conjuctiva of right eye Reports pain in right eye. Vital Signs: 22:53 BP 172 / 77; Pulse 60; Resp 16; Temp 97.4; Pulse Ox 100% on R/A; Weight 62.6 kg; Height iw 5 ft. 4 in. ; Pain 7/10; 23:27 BP 139 / 63; Pulse 65; Resp 17 S; Pulse Ox 100% on R/A; ha1 22:53 Body Mass Index 23.69 (62.60 kg, 162.56 cm) iw 22:53 Pain Scale: Adult iw Visual Acuity: 23:30 Left Eye Normal, Brisk, Pin Point; Right Eye Normal, Brisk, Pin Point; Both Eyes Visual ha1 acuity 20/20; With Lenses; ED Course: 22:41 Patient arrived in ED. gm2 22:54 Triage completed. iw 22:55 Arm band placed on. iw 22:56 Patient has correct armband on for positive identification. Bed in low position. Call ha1 light in reach. Side rails up X 1. 22:57 Skyler Valiente MD is Attending Physician. rt 23:27 Rita Quintero, JUJU is Primary Nurse. ha1 23:28 Assist provider with eye exam of right eye. using fluorescein stain, Performed by Skyler Valiente MD Patient tolerated well. Patient did not have IV access during this emergency room visit. 23:29 Provided Education on: follow up with ophthalmology . ha1 Administered Medications: No medications were administered Medication: 23:29 VIS not applicable for this client. ha1 Outcome: 23:20 Discharge ordered by . rt 23:28 Discharged to home ambulatory, with family, ha1 23:28 Condition: stable 23:28 Discharge instructions given to patient, family, Instructed on discharge instructions, follow up and referral plans. medication usage, Demonstrated understanding of instructions, follow-up care, medications, Prescriptions given X 1, 23:31 Patient left the ED. ha1 Signatures: Cee Patircia RN JUJU Rita Quintero RN RN ha1 Skyler Valiente MD MD rt Agnieszka Christensen 2 Corrections: (The following items were deleted from the chart) 22:55 22:54 Allergies: No Known Allergies; antoinette
[2023-02-12 00:08] VITALS: BP 139/63; TEMP 97.4; O2SAT 100
== END 2023-02-11 23:31 | disposition home or self-care (01) ==
LOC: ER 22:34
DX: S05.01XA Injury of conjunctiva and corneal abrasion without foreign body, right eye, initial encounter (principal); Z88.0 Allergy status to penicillin
CPT/HCPCS: 99283